=== PATIENT | male | born 1970 | race Caucasian/White ===

== ENCOUNTER 2017-01-06 01:04 | Emergency (ER) | payer BC ==
[~2017-01-06] VITALS: Ht 182.9 cm; Wt 79.0 kg
[2017-01-06] MEDS ORDERED: MORPHINE SULFATE 4 MG/ML CPJ (NOT FOR IM USE) IV STA (02:31)
[2017-01-06] MEDS ORDERED: ONDANSETRON HCL 4MG/2ML VIAL IV STA (02:31)
[2017-01-06] MEDS ORDERED: LORAZEPAM 2MG/ML CPJ IV ONE (03:00)
[2017-01-06] MEDS ORDERED: MORPHINE SULFATE 4 MG/ML CPJ (NOT FOR IM USE) IV ONE (03:00)
[2017-01-06] MEDS ORDERED: SODIUM CHLORIDE 0.9% 1,000 ML IV ONE (03:00)
[2017-01-06] MEDS ORDERED: PROPOFOL 200MG/20ML VIAL IV ONE (03:15)
[2017-01-06] MEDS ORDERED: KETAMINE HCL 50 MG/ML 10ML IV ONE (03:15)
[2017-01-06 05:26] VITALS: BP 133/102
== END 2017-01-06 05:35 | disposition home or self-care (01) ==
LOC: ER 01:04
DX: S43.084A Other dislocation of right shoulder joint, initial encounter (principal); E89.3 Postprocedural hypopituitarism; W01.0XXA Fall on same level from slipping, tripping and stumbling without subsequent striking against object, initial encounter; Y93.65 Activity, lacrosse and field hockey; Y92.330 Ice skating rink (indoor) (outdoor) as the place of occurrence of the external cause
CPT/HCPCS: 23650; 73030; 96361; 96374; 96375; 99152; 99285; J2060; J2270; J2405; J3490; J7030; Z7610; J2704